=== PATIENT | male | born 1995 | race Caucasian/White ===

== ENCOUNTER 2018-09-08 20:26 | Emergency (ER) | payer MEDICAID ==
[~2018-09-08] VITALS: Ht 182.9 cm; Wt 64.9 kg
[2018-09-08 20:31] VITALS: Ht 182.9 cm; Wt 64.9 kg
[2018-09-08 22:29] VITALS: BP 140/93
== END 2018-09-08 22:29 | disposition home or self-care (01) ==
LOC: ED 20:26
DX: R50.9 Fever, unspecified (principal); J00 Acute nasopharyngitis [common cold]; F17.210 Nicotine dependence, cigarettes, uncomplicated; F90.9 Attention-deficit hyperactivity disorder, unspecified type